=== PATIENT | male | born 1955 | race Caucasian/White ===

== ENCOUNTER 2018-05-17 08:54 | Emergency (ER) | payer MEDICAID ==
--- NOTE | 2018-05-17 09:46 | ED Physician Chart ---
ED Chief Complaint/HPI - Patient Information Date Seen:: 05/17/18 Time Seen:: 09:30 Chief Complaint:: dizziness History of Present Illness:: Patient had onset yesterday with dizziness. When he moves he's had the environment appears to move. No recent upper respiratory tract infection or cough. Patient vomited twice yellow fluid. Allergies:: Allergies Allergy/AdvReac Type Severity Reaction Status Date / Time Penicillins [PCN] Allergy Verified 05/17/18 09:20 Vitals:: Vital Signs - 8 hr 05/17/18 09:16 Temp 97.5 F HR 86 RR 16 BP 142/90 O2 Sat % 97 Historian:: Patient, Family Member Review:: Nurse's Note Reviewed ED Review of Systems - Review of Systems General/Constitutional: No fever, No chills Skin: No skin lesions Head: No headache Eyes: No loss of vision ENT: No earache Neck: No neck pain Cardio Vascular: No chest pain Pulmonary: No SOB GI: Nausea, Vomiting G/U: No dysuria Musculoskeletal: No bone or joint pain Psychiatric: No prior psych history, No depression, No anxiety Hematopoietic: No bruising Allergic/Immuno: No urticaria Neurological: No syncope, No focal symptoms ED Past Medical History - Past Medical History Past Medical History: HTN, DM Family History: Diabetes Melitus Social History: Smoker, Alcohol, Other (patient smokes 2 packs of cigarettes a day and sometimes drinks alcohol) Surgical History: None Medication: Reviewed Family Medical History - Family Member Mother Living Status: Hx Family Diabetes: Yes ED Physical Exam - Physical Examination General/Constitutional: Awake, Well-developed, well-nourished, Alert, No distress Head: Atraumatic Eyes: Lids, conjuctiva normal, PERRL Other Eyes comments:: No nystagmus Skin: Nl inspection, No rash ENMT: External ears, nose nl, TM canals nl, Nasal exam nl, Oropharynx nl, Tonsils nl Other ENMT comments:: Edentulous Neck: No nuchal rigidity, No bruit Respiratory: Nl effort/Exclusion, Clear to Auscultation, No Wheeze/Rhonchi/Rales Cardio Vascular: RRR, No murmur, gallop, rubs, NL S1 S2 GI: No tenderness/rebounding/guarding, No organomegaly, No hernia, Normal BS's, Nondistended : No CVA tenderness Extremities: No edema, Normal digits & nails Neuro/Psych: No focal deficits ED Labs/Radiology/EKG Results - Lab Results Results: Laboratory Results WBC 7.0 Th/cmm (4.8-10.8) 05/17/18 09:50 RBC 5.41 Mil/cmm (4.30-5.70) 05/17/18 09:50 Hgb 16.1 gm/dL (12-16) 05/17/18 09:50 Hct 47.4 % (41.0-60) 05/17/18 09:50 MCV 87.6 fl (80-99) 05/17/18 09:50 MCH 29.7 pg (26.0-30.0) 05/17/18 09:50 MCHC Differential 33.9 pg (28.0-36.0) 05/17/18 09:50 RDW 12.4 % (11.5-20.0) 05/17/18 09:50 Plt Count 153 Th/cmm (150-400) 05/17/18 09:50 MPV 8.8 fl 05/17/18 09:50 Neutrophils % 60.4 % (40.0-80.0) 05/17/18 09:50 Lymphocytes % 29.7 % (20.0-50.0) 05/17/18 09:50 Monocytes % 7.3 % (2.0-10.0) 05/17/18 09:50 Eosinophils % 2.0 % (0.0-5.0) 05/17/18 09:50 Basophils % 0.6 % (0.0-2.0) 05/17/18 09:50 Laboratory Results WBC 7.0 Th/cmm (4.8-10.8) 05/17/18 09:50 RBC 5.41 Mil/cmm (4.30-5.70) 05/17/18 09:50 Hgb 16.1 gm/dL (12-16) 05/17/18 09:50 Hct 47.4 % (41.0-60) 05/17/18 09:50 MCV 87.6 fl (80-99) 05/17/18 09:50 MCH 29.7 pg (26.0-30.0) 05/17/18 09:50 MCHC Differential 33.9 pg (28.0-36.0) 05/17/18 09:50 RDW 12.4 % (11.5-20.0) 05/17/18 09:50 Plt Count 153 Th/cmm (150-400) 05/17/18 09:50 MPV 8.8 fl 05/17/18 09:50 Neutrophils % 60.4 % (40.0-80.0) 05/17/18 09:50 Lymphocytes % 29.7 % (20.0-50.0) 05/17/18 09:50 Monocytes % 7.3 % (2.0-10.0) 05/17/18 09:50 Eosinophils % 2.0 % (0.0-5.0) 05/17/18 09:50 Basophils % 0.6 % (0.0-2.0) 05/17/18 09:50 Laboratory Results WBC 7.0 Th/cmm (4.8-10.8) 05/17/18 09:50 RBC 5.41 Mil/cmm (4.30-5.70) 05/17/18 09:50 Hgb 16.1 gm/dL (12-16) 05/17/18 09:50 Hct 47.4 % (41.0-60) 05/17/18 09:50 MCV 87.6 fl (80-99) 05/17/18 09:50 MCH 29.7 pg (26.0-30.0) 05/17/18 09:50 MCHC Differential 33.9 pg (28.0-36.0) 05/17/18 09:50 RDW 12.4 % (11.5-20.0) 05/17/18 09:50 Plt Count 153 Th/cmm (150-400) 05/17/18 09:50 MPV 8.8 fl 05/17/18 09:50 Neutrophils % 60.4 % (40.0-80.0) 05/17/18 09:50 Lymphocytes % 29.7 % (20.0-50.0) 05/17/18 09:50 Monocytes % 7.3 % (2.0-10.0) 05/17/18 09:50 Eosinophils % 2.0 % (0.0-5.0) 05/17/18 09:50 Basophils % 0.6 % (0.0-2.0) 05/17/18 09:50 Sodium 138 mEq/L (136-145) 05/17/18 09:50 Potassium 3.4 mEq/L (3.5-5.1) L 05/17/18 09:50 Chloride 102 mEq/L (98-107) 05/17/18 09:50 Carbon Dioxide 21.0 mEq/L (21.0-31.0) 05/17/18 09:50 Anion Gap 18.4 (7.0-16.0) H 05/17/18 09:50 BUN 12 mg/dL (7-25) 05/17/18 09:50 Creatinine 1.0 mg/dL (0.7-1.3) 05/17/18 09:50 Est GFR ( Amer) > 60.0 ml/min (>90) 05/17/18 09:50 Est GFR (Non-Af Amer) > 60.0 ml/min 05/17/18 09:50 BUN/Creatinine Ratio 12.0 05/17/18 09:50 Glucose 185 mg/dL (70-105) H 05/17/18 09:50 Calcium 8.9 mg/dL (8.6-10.3) 05/17/18 09:50 Magnesium 1.8 mg/dL (1.9-2.7) L 05/17/18 09:50 ED Assessment - Assessment General Assessment: After the history and physical I attempted a maneuver to move the otoliths by right rotation of the neck to about 80-85 and then left rotation of the neck to 80-85. The procedure was repeated once after which the patient dizziness did not improve. At 12:30 patient's dizziness was unchanged when he awoke from sleeping. ED Septic Shock - . Is Septic Shock (SBP<90, OR Lactate>4 mmol\L) present?: No - <6hrs of presentation: Vital Signs: Vital Signs - 8 hr 05/17/18 09:16 Temp 97.5 F HR 86 RR 16 BP 142/90 O2 Sat % 97 ED Reassessment (Disposition) - Reassessment Reassessment Condition:: Unchanged - Diagnosis Diagnosis:: Benign positional vertigo; diabetes; hypertension; history of heavy nicotine use ; borderline hypokalemia; hyperglycemia - Aftercare/Follow up Instructions Aftercare/Follow-Up Instructions:: Refer to Discharge Instructions Medication Prescribed:: Antivert 25 mg #15 to take 1 3 times a day - Patient Disposition Discharge/Transfer:: Home Condition at Disposition:: Stable, Unchanged
[2018-05-17 10:00] LABS: % BASOPHILS 0.6 % (0.0-2.0); % LYMPHOCYTES 29.7 % (20.0-50.0); % MONOCYTES 7.3 % (2.0-10.0); % NEUTROPHILS 60.4 % (40.0-80.0); EOSINOPHILE ABSOLUTE 0.1 Th/cmm (0.1-0.4); HEMATOCRIT 47.4 % (41.0-60); HEMOGLOBIN 16.1 gm/dL (12-16); LYMPHOCYTE ABSOLUTE 2.1 Th/cmm (1.5-3.0); MEAN CELL VOLUME 87.6 fl (80-99); MEAN CORPUSCULAR HEMOGLOBIN 29.7 pg (26.0-30.0); MEAN CORPUSCULAR HGB CONC 33.9 pg (28.0-36.0); MEAN PLATELET VOLUME 8.8 fl; MONOCYTE ABSOLUTE 0.5 Th/cmm (0.3-1.0); NEUTROPHILE ABSOLUTE 4.3 Th/cmm (1.8-8.0); PLATELET COUNT 153 Th/cmm (150-400); RED BLOOD COUNT 5.41 Mil/cmm (4.30-5.70); RED CELL DISTRIBUTION WIDTH 12.4 % (11.5-20.0)
--- NOTE | 2018-05-17 10:18 | Diagnostic Imaging Report ---
Head CT without intravenous contrast Indication: Dizziness Comparison: None Technique: Axial images were obtained from the vertex to the skull base without IV contrast. Coronal reconstructions were made. Total DLP: [id number], [id number] FINDINGS: Images of the brain obtained without contrast demonstrate no evidence of an acute hemorrhage. There is mild atrophy. The gottlieb-white matter differentiation is preserved. The ventricles and basal cisterns are patent. No mass effect or midline shift. No evidence of a skull fracture or focal soft tissue swelling. The visualized paranasal sinuses demonstrate mild mucosal thickening. IMPRESSION: No acute intracranial abnormality. Mild atrophy.
[2018-05-17 11:52] LABS: ANION GAP 18.4 (7.0-16.0); CHLORIDE 102 mEq/L (98-107); POTASSIUM SERUM 3.4 mEq/L (3.5-5.1)
[2018-05-17 11:53] LABS: BUN - UREA NITROGEN 12 mg/dL (7-25); CALCIUM SERUM 8.9 mg/dL (8.6-10.3); GFR AFRICAN-AMERICAN > 60.0 ml/min (>90); GFR NON AFRICAN-AMERICAN > 60.0 ml/min; GLUCOSE 185 mg/dL (70-105); MAGNESIUM 1.8 mg/dL (1.9-2.7); SODIUM SERUM 138 mEq/L (136-145)
[2018-05-17] MEDS ORDERED: Potassium Chloride 20 mEq ER Tab PO ONE ×2 (12:38→12:42)
[2018-05-17] MEDS: Potassium Chloride 20 mEq ER Tab PO ONE (12:48)
== END 2018-05-17 12:50 | disposition home or self-care (01) ==
LOC: ER 08:54
DX: H81.10 Benign paroxysmal vertigo, unspecified ear (principal); E11.65 Type 2 diabetes mellitus with hyperglycemia; I10 Essential (primary) hypertension; E87.6 Hypokalemia; F17.210 Nicotine dependence, cigarettes, uncomplicated; Z88.0 Allergy status to penicillin
CPT/HCPCS: 36415-UA; 70450-TC; 80048-TC; 83036-90; 83735-TC; 85025-TC